=== PATIENT | female | born 1995 | race African-American/Black ===

== ENCOUNTER 2017-05-19 22:30 | Emergency (ER) | payer OTHER ==
--- NOTE | 2017-05-19 23:32 | RAD ---
PA AND LATERAL CHEST: Indication: Midsternal chest pain. Comparison: None. FINDINGS/IMPRESSION: Lungs are clear. Cardiomediastinal silhouette is normal. No acute osseous abnormality is evident. POS: [facility]
== END 2017-05-19 23:21 | disposition left against medical advice (07) ==
LOC: ERS 22:30
DX: Z53.21 Procedure and treatment not carried out due to patient leaving prior to being seen by health care provider (principal)
CPT/HCPCS: 71020; 93005

== ENCOUNTER 2017-05-20 08:34 | Emergency (ER) | payer OTHER ==
[2017-05-20 09:12] LABS: #Eosinphils 0.1 thou/uL (0.0-0.7); #Lymphocytes 1.2 thou/uL (1.20-3.40); %Basophils 0.4 % (0.0-1.0); %Eosinophils 0.6 % (0.0-10.0); %Lymphocytes 10.8 % (28.0-48.0); %Monocytes 8.4 % (0.0-4.0); Hematocrit 34.6 % (36.0-47.0); Mean Platelet Volume 7.6 fL (7.4-10.4); Red Blood Cell (RBC) Count 3.77 mill/uL (4.00-5.20); White Blood Cell (WBC) Count 11.3 thou/uL (4.8-10.8)
[2017-05-20 09:28] LABS: Bilirubin Small (Negative); Blood, Urine Negative (Negative); Glucose, Urine (Dipstick) Negative (Negative); Ketone, Urine > or equal to 80 mg/dL (Negative); Nitrite Negative (Negative); Protein, Urine (Dipstick) Trace mg/dL (Neg-Trace)
[2017-05-20 09:30] LABS: ALT (SGPT) Less than 7 U/L (8-55); AST (SGOT) 12 U/L (5-34); Alkaline Phosphatase 58 U/L (40-150); Anion Gap 9 mmol/L (10-20); BUN (Urea Nitrogen) 8 mg/dL (7.0-18.7); Bilirubin, Total 1.1 mg/dL (0.2-1.2); Calc. Creatinine Clearance 0 mL/min (70-130); Calcium 8.9 mg/dL (7.8-10.44); Carbon Dioxide 27 mmol/L (22-29); Chloride 103 mmol/L (98-107); Estimated GFR-MDRD Greater than 90; Globulin 3.8 g/dL (2.4-3.5); Protein, Total 7.7 g/dL (6.0-8.3)
[2017-05-20] MEDS ORDERED: Acetaminophen 500 MG TAB ONE (10:17)
== END 2017-05-20 10:59 | disposition home or self-care (01) ==
LOC: ERS 08:34
DX: B34.9 Viral infection, unspecified (principal); F41.9 Anxiety disorder, unspecified
CPT/HCPCS: 71020; 80053; 81003; 84703; 85025; 93005; 99284

== ENCOUNTER 2017-12-11 00:49 | Emergency (ER) | payer OTHER | END 2017-12-11 01:25 | disposition home or self-care (01) | LOC: ERS 00:49 | DX: O99.513 Diseases of the respiratory system complicating pregnancy, third trimester (principal); J02.9 Acute pharyngitis, unspecified; O99.343 Other mental disorders complicating pregnancy, third trimester; F41.9 Anxiety disorder, unspecified; Z3A.00 Weeks of gestation of pregnancy not specified | CPT/HCPCS: 99282 ==

== ENCOUNTER 2018-01-25 18:51 | Observation (INO) | payer OTHER ==
[2018-01-25 19:21] LABS: #Eosinphils 0.1 thou/uL (0.0-0.7); #Lymphocytes 1.7 thou/uL (1.20-3.40); #Monocytes 0.8 thou/uL (0.11-0.59); #Neutrophils 7.1 thou/uL (1.40-6.50); %Basophils 0.4 % (0.0-1.0); %Eosinophils 0.9 % (0.0-10.0); %Lymphocytes 17.8 % (21.0-51.0); %Monocytes 8.2 % (0.0-10.0); %Neutrophils 72.7 % (42.0-75.0); Hemoglobin 8.7 g/dL (12.0-16.0); Mean Corpuscular Hemoglobin 23.8 pg (27.0-31.0); Mean Corpuscular Volume 74.4 fL (78.0-98.0); Mean Platelet Volume 9.4 fL (7.4-10.4); Platelet Count 213 thou/uL (130-400); Red Blood Cell (RBC) Count 3.67 mill/uL (4.20-5.40); White Blood Cell (WBC) Count 9.7 thou/uL (4.8-10.8)
[2018-01-25 19:30] LABS: Bilirubin Negative (Negative); Blood, Urine Negative (Negative); Clarity CLEAR (Clear); Glucose, Urine (Dipstick) Negative (Negative); Leukocyte Small (Negative); Nitrite Negative (Negative); Protein, Urine (Dipstick) Negative (Neg-Trace); Specific Gravity, Urine 1.016 (1.002-1.036)
[2018-01-25 19:30] LABS: PTT 26.8 SEC (22.9-36.1); Prothrombin Time 13.1 SEC (12.0-14.7)
[2018-01-25 19:32] LABS: Bacteria/HPF 1+ HPF (None Seen); Hyaline Casts/LPF 0-3 HYALINE CAST LPF (0-3 Hyaline); Pathc Cast-AUWi Flag 0.14 (0-2.49); RBC/HPF 0-3 HPF (0-3)
[2018-01-25 19:34] LABS: Anisocytosis SLIGHT = 6-15 cells (100X) (0-5/hpf); Hypochromia SLIGHT = 6-15 cells (100X) (0-5/hpf); Large Platelets SLIGHT; MDiff Complete? YES; Microcytosis SLIGHT = 6-15 cells (100X) (0-5/hpf); Ovalocytes SLIGHT = 2-5 cells (100X) (0-1/hpf); PLT Morphology Comment Appears Adequate; Polychromasia SLIGHT = 2-3 cells (100X) (0-2/hpf)
[2018-01-25 19:35] LABS: Anion Gap 12 mmol/L (10-20); BUN (Urea Nitrogen) 6 mg/dL (7.0-18.7); Calc. Creatinine Clearance 0 mL/min (70-130); Calcium 8.5 mg/dL (7.8-10.44); Carbon Dioxide 23 mmol/L (22-29); Chloride 104 mmol/L (98-107); Estimated GFR-MDRD Greater than 90; Glucose 88 mg/dL (70-105); Potassium 3.6 mmol/L (3.5-5.1); Sodium 135 mmol/L (136-145)
[2018-01-25 22:00] VITALS: BMI 26.7
[2018-01-25] MEDS: Sodium Chloride 0.9% 1,000 ML IV SCH ×2 (22:15→23:26)
--- NOTE | 2018-01-25 22:23 | PDOC.EVN ---
Event Note - Event Note Event Note: H&P written in chart...AND dictated, Exam by me: cervix /1, no VB, no LOF BPP pending Good FM now felt.
[2018-01-25] MEDS ORDERED: cefTRIAXone\\ROCEPHIN 1 GM in Sodium Chloride 0.9% 100 ML IVPB SCH (22:30)
--- NOTE | 2018-01-25 22:31 | HP ---
DATE OF ADMISSION: 01/25/2018 HISTORY AND PHYSICAL TIME OF EVALUATION: 22:10 (This is after the patient arrived to Labor and Delivery after first being cleared from the ER). REASON FOR EVALUATION: Status post fall from a sitting position from a chair onto the floor/concrete and patient hitting her left hip and buttocks. PHYSICIAN: Patient sees Dr. Jose Stephens. Patient has a full handwritten H&P and this dictation is to supplement that. HISTORY OF PRESENT ILLNESS: In brief, the patient was seen in Labor and Delivery at approximately 22 00 status post ER clearance. She is a G2, P1 with a history of a for -induced hyp ertension that was done approximately at 26 weeks. She has a repeat scheduled with this . She is now at 37 weeks. She states that her fall happened today at approximately 1 830. She denies gush of fluid or vaginal bleeding. In the ER, she was noted to have a hemoglobin of 8.7, but I do not have a baseline to compare to. PAST MEDICAL HISTORY: She has a recent history of just being diagnosed with a UTI, which was found i n the ER, but that was not yet treated. PAST SURGICAL HISTORY: x1 at 26 weeks. ALLERGIES: None. OBSTETRIC HISTORY: Significant for as previously described. PHYSICAL EXAMINATION: VITAL SIGNS: Her blood pressure is 110/60, pulse is in the 60s, and her temperature is 98.9. GENERAL: She is in no acute distress. Uterus is nontender, but it is firm when contractions occur. Cervix is currently pending as patient just arrived here shortly and I will update the record after I do her exam. The patient's heart tones were initially nonreactive, now they are moderate karolina iability with better accelerations. On the tocodynamometer, we are picking up some contractions abou t every 2-3 minutes. LABORATORY DATA: From the ER showed a hemoglobin of 8.7 and again a UTI that was diagnosed by the ER , but not yet treated. ASSESSMENT: This is a patient at 37 weeks, patient of Dr. Jose Stephens who were initially had a clas s II strip upon arrival to labor and delivery, status post fall, but now looks better. PLAN: 1. IV hydration with normal saline, I have ordered normal saline since I will give her 1 gram of Sukhjinder ephin for her recently diagnosed urinary tract infection. 2. She has been typed and crossed in the ER. 3. Biophysical profile for the class II strip. 4. If the nonstress test continues to look nonreactive (currently looks better) and/or there is cont inued suspicion of possible small level abruption, we may proceed with a repeat . For now, we will continue to await more information with a biophysical profile and await cervical examinations .
--- NOTE | 2018-01-25 23:36 | PDOC.EVN ---
Event Note - Event Note Event Note: BPP 01/22 Continue OBS overnight
--- NOTE | 2018-01-26 04:17 | PDOC.EVN ---
Event Note - Event Note Event Note: F/U check: Baby is cat 1 on monitor Uterine irritability now resolved Ok for DC home at 0500 as no evidence abruption or distress clinically
[2018-01-26 05:05] VITALS: BP 90/60; TEMP 98.6
--- NOTE | 2018-01-26 15:15 | ULT ---
PRELIMINARY REPORT/[facility]/EMERGENTY AFTER-HOURS PROCEDURE US Biophysical Profile Without Non-Stress Testing CLINICAL HISTORY: 22 years old, female; Injury or trauma; Fall; ; Prior surgery; Surgery date: 6+ months; Surge ry type: TECHNIQUE: Real-time ultrasound of the maternal pelvis for biophysical profile evaluation with image docum entation. COMPARISON: No relevant prior studies available. FINDINGS: breathing movements: Present. Score 2/2. Gross body movements: Present. Score 2/2. tone: Present. Score 2/2. Qualitative amniotic fluid volume: Within normal limits. Score 2/2. IMPRESSION: Normal biophysical profile ultrasound. Score 8/8. US Uterus, Limited US Doppler Velocimetry Umbilical Artery TECHNIQUE: Real-time ultrasound of the maternal uterus (limited) with image documentation. Real-time US Doppler velocimetry of the umbilical artery integrating B-mode two-dimensional vascular struct ure, Doppler spectral analysis and color flow Doppler imaging. COMPARISON: No relevant prior studies available. FINDINGS: Single living intrauterine gestation in vertex presentation. FHR: 160bpm. Placenta is posterior. No a cute findings. YUE: 9.8cm. Three-vessel cord is noted. Umbilical artery S/D ratio is 2.2. Adequate diastolic flow is present. IMPRESSION: Single viable intrauterine . No acute findings. Thank you for allowing us to participate in the care of your patient. Dictated and Authenticated by: Dylan Man MD 01/26/2018 12:55 AM Central Time ([place] & [place]) FINAL REPORT ULTRASOUND BIOPHYSICAL PROFILE LIMITED OB ULTRASOUND: I agree with the preliminary report given by Dr. Man of [facility]. POS: [facility]
== END 2018-01-26 05:20 | disposition home health service (06) ==
LOC: ERS 18:51 → SDC/OP 21:36 → L&D 01-26 02:25
PROVIDERS: ADMIT Obstetrics & Gynecology; ATTEND Obstetrics & Gynecology
DX: O9A.213 Injury, poisoning and certain other consequences of external causes complicating pregnancy, third trimester (principal); R10.9 Unspecified abdominal pain; O23.43 Unspecified infection of urinary tract in pregnancy, third trimester; Z3A.37 37 weeks gestation of pregnancy; Z79.899 Other long term (current) drug therapy; W07.XXXA Fall from chair, initial encounter
CPT/HCPCS: 76819; 80048; 81003; 81015; 85025; 85384; 85610; 85730; 86850; 86870; 86900; 86901; 86921; 87086; 96361; 96365; 99285; J0696; J7050

== ENCOUNTER 2018-01-27 13:01 | Outpatient (CLI) | payer OTHER ==
--- NOTE | 2018-01-27 15:37 | ULT ---
OBSTETRIC SONOGRAM: HISTORY: evaluation, third trimester gestation. FINDINGS: Multiple transabdominal sonographic views of the gravid uterus shows a single intrauterine gestation in cephalic presentation. cranium predominantly obscures the uterine cervix. No gross intracran ial abnormalities are evident. spine and kidneys are intact as visualized. Three vessel cord sh ows a normal insertion. Heart motion at 130 beats per minute. Amniotic fluid is within normal limits. Grade II placenta is posterior and to the material left. Measurements are as follows: Biparietal diameter 32 weeks, 5 days Head circumference 35 weeks, 5 days Abdominal circumference 35 weeks, 0 days Femur length 36 weeks, 5 days Estimated date of delivery based on today's sonogram is 03/06/18. Hadlock percentile equals 13%. IMPRESSION: Single viable intrauterine gestation with estimated gestational age based on today's sonogram of 34 w eeks, 4 days. Estimated weight 2643 grams (5 lb. 13 oz.). POS: [facility]
== END 2018-01-27 13:02 | disposition home or self-care (01) ==
LOC: SCSULT 13:01
PROVIDERS: ATTEND Family Medicine
DX: Z34.93 Encounter for supervision of normal pregnancy, unspecified, third trimester (principal); Z3A.34 34 weeks gestation of pregnancy
CPT/HCPCS: 76805

== ENCOUNTER 2018-02-01 15:58 | Day surgery (SDC) | payer OTHER ==
[2018-02-01 16:32] VITALS: BMI 28.3
[2018-02-01 16:33] VITALS: BP 101/70; TEMP 98.3
[2018-02-01] MEDS ORDERED: Dextrose 5%-Lactated Ringers 1,000 ML IV SCH ×2 (17:30→17:50)
--- NOTE | 2018-02-01 17:32 | HP ---
DATE OF SERVICE: 02/01/2018 TIME: 1710, which is also the time of evaluation. LOCATION: Labor and Delivery. This is a patient of Dr. Jose Stephens. Gestational age 30 weeks and 0 day. REASON FOR EVALUATION: Nausea, vomiting, and diarrhea of unclear etiology, at 38 weeks and 0 days, p rior x1 (primary low transverse ). HISTORY OF PRESENT ILLNESS: In brief, this is a 22-year-old -Welsh 2, para 1 with a history of a prior at 26 weeks, which was low transverse a couple of years ago for severe preeclampsia. She has not yet been scheduled for her repeat , but is planning on one later this gestation. She states nausea, vomiting, diarrhea, and some decreased movement. She was last seen on 01/25/2018 by me with a complaint of decreased movement after a fall from a chair. At that time, her biophysical profile was 8/8 and she ruled out for abruption. She is here now for possible gastroenteritis type symptoms. REVIEW OF SYSTEMS: Complete review of systems performed and as per HPI. PAST MEDICAL HISTORY: Otherwise, negative. PAST SURGICAL HISTORY: , which was low transverse. ALLERGIES: None. PHYSICAL EXAMINATION: VITAL SIGNS: Blood pressure is 101/70, pulse is 79, respirations are 20, and she is afebrile with a temperature of 97.9. GENERAL: Clinically, she is in no acute distress and does not appear to be actively laboring. monitor shows some decreased variability at minimum to moderate, but there are accelerations that ar e present. The rate is around 120-130. There is no pathological decelerations noted. Under monitor ing, in terms of the tocodynamometer, there is uterine irritability, but no contraction distinct kasandra tej. ASSESSMENT: This is a 38-week and 0 days patient with a prior low transverse section who pr esents with symptoms likely suspicious for gastroenteritis. She has also had some decreased mo vement. PLAN: 1. Biophysical profile. 2. CMP and a CBC. 3. I have ordered D5 LR for hydration. 4. Observation in labor and delivery for now.
[2018-02-01 17:48] LABS: #Eosinphils 0.1 thou/uL (0.0-0.7); #Lymphocytes 0.7 thou/uL (1.20-3.40); #Monocytes 0.4 thou/uL (0.11-0.59); #Neutrophils 7.9 thou/uL (1.40-6.50); %Eosinophils 0.6 % (0.0-10.0); %Lymphocytes 7.5 % (21.0-51.0); %Monocytes 4.4 % (0.0-10.0); %Neutrophils 87.5 % (42.0-75.0); Hemoglobin 8.5 g/dL (12.0-16.0); Mean Corpuscular HGB CONC 32.3 g/dL (32.0-36.0); Mean Corpuscular Hemoglobin 23.7 pg (27.0-31.0); Mean Corpuscular Volume 73.3 fL (78.0-98.0); Mean Platelet Volume 8.9 fL (7.4-10.4); Platelet Count 205 thou/uL (130-400); RBC Distribution Width 15.1 % (11.5-14.5); Red Blood Cell (RBC) Count 3.59 mill/uL (4.20-5.40)
--- NOTE | 2018-02-01 17:51 | PDOC.EVN ---
Event Note - Event Note Event Note: CBC with Hct 26 CMP pending
[2018-02-01 18:09] LABS: ALT (SGPT) 13 U/L (8-55); AST (SGOT) 21 U/L (5-34); Albumin 3.2 g/dL (3.5-5.0); Alkaline Phosphatase 127 U/L (40-150); Anion Gap 14 mmol/L (10-20); BUN (Urea Nitrogen) 6 mg/dL (7.0-18.7); Bilirubin, Total 1.3 mg/dL (0.2-1.2); Calc. Creatinine Clearance 125 mL/min (70-130); Calcium 8.5 mg/dL (7.8-10.44); Carbon Dioxide 21 mmol/L (22-29); Chloride 104 mmol/L (98-107); Estimated GFR-MDRD Greater than 90; Globulin 3.4 g/dL (2.4-3.5); Glucose 84 mg/dL (70-105); Potassium 3.7 mmol/L (3.5-5.1); Protein, Total 6.6 g/dL (6.0-8.3); Sodium 135 mmol/L (136-145)
--- NOTE | 2018-02-01 18:09 | ULT ---
SONOGRAPHIC BIOPHYSICAL PROFILE EXAM: 02/01/18 HISTORY: Decreased movement. FINDINGS: Single viable intrauterine gestation in cephalic presentation. No evidence of placenta previa. Good tone, breathing movement, and gross movements were demonstrated. Amniotic fluid index is 1 3.3. IMPRESSION: Sonographic biophysical profile score is 8/8. POS: [facility]
--- NOTE | 2018-02-01 18:24 | PDOC.EVN ---
Event Note - Event Note Event Note: BPP is 8/8 CMP is normal HX UTI treated... afebrile Feeling better
== END 2018-02-01 18:34 | disposition home or self-care (01) ==
LOC: L&D/OP 15:58
PROVIDERS: ATTEND Family Medicine
DX: O99.613 Diseases of the digestive system complicating pregnancy, third trimester (principal); K52.9 Noninfective gastroenteritis and colitis, unspecified; O36.8130 Decreased fetal movements, third trimester, not applicable or unspecified; Z3A.30 30 weeks gestation of pregnancy
CPT/HCPCS: 59025; 76819; 80053; 85025; 96360; 99283

== ENCOUNTER 2018-02-09 02:50 | Inpatient (IN) | payer OTHER ==
[2018-02-09 03:19] VITALS: BMI 25.7
[2018-02-09] MEDS ORDERED: Butorphanol Tartrate 1 MG/ML VIAL ONE (04:05)
[2018-02-09] MEDS ORDERED: Promethazine HCl 25 MG/ML VIAL IM PRN (04:30)
[2018-02-09] MEDS ORDERED: Butorphanol Tartrate 1 MG/ML VIAL SLOW IVP PRN (04:30)
[2018-02-09] MEDS ORDERED: Lactated Ringer's 1,000 ML IV SCH (04:30)
[2018-02-09] MEDS ORDERED: Ondansetron HCl/PF 4 MG/2 ML Vial IVP PRN (04:30)
[2018-02-09 04:37] LABS: Hemoglobin 8.9 g/dL (12.0-16.0); Mean Corpuscular HGB CONC 32.9 g/dL (32.0-36.0); Mean Corpuscular Hemoglobin 23.9 pg (27.0-31.0); Mean Corpuscular Volume 72.7 fL (78.0-98.0); Mean Platelet Volume 9.4 fL (7.4-10.4); Platelet Count 218 thou/uL (130-400); RBC Distribution Width 15.7 % (11.5-14.5); Red Blood Cell (RBC) Count 3.72 mill/uL (4.20-5.40); White Blood Cell (WBC) Count 10.2 thou/uL (4.8-10.8)
[2018-02-09] MEDS: Lactated Ringer's 1,000 ML IV SCH ×2 (04:39→06:05)
[2018-02-09] MEDS ORDERED: Bupivacaine 0.5% 20 ML, fentaNYL Citrate/PF 400 MCG in Sodium Chloride 0.9% 72 ML EPIDURAL SCH (05:00)
[2018-02-09] MEDS ORDERED: DISCONTINUE ALL PREVIOUS NARCOTICS FS SCH (05:00)
[2018-02-09 05:10] LABS: HBSAg Index 0.22 S/CO (0-0.99); Hep B Surf Ag Non-Reactive S/CO (NonReactive)
[2018-02-09 06:05] LABS: Syphilis Antibody Nonreactive (Nonreactive); Syphilis Antibody Index 0.05 S/CO (<1.00 Non-Reactive)
[2018-02-09] MEDS ORDERED: NS w/ Oxytocin 10 units 500 ML IV SCH (08:30)
[2018-02-09] MEDS ORDERED: Dextrose 5%-Lactated Ringers 1,000 ML IV SCH (08:30)
--- NOTE | 2018-02-09 08:37 | PDOC.LDPN ---
Labor & Delivery Progress Note - Subjective Subjective: comfortable - Objective Vital signs reviewed and normal: yes General: NAD, resting Uterine fundus: non tender Dilation: 5 Effacement: 75% Station: -1 FHT: category 1 [place] contractions every: 7-9 mins AROM: clear fluid IUPC placed: yes Plan: continue plan of care, pitocin for augmentation
[2018-02-09] MEDS ORDERED: NS / Oxytocin 40 units/1000ml 1,000 ML ONE ×2 (14:14→16:20)
[2018-02-09] MEDS ORDERED: Lidocaine 1% (PF) 30 ML VIAL ONE (14:14)
[2018-02-09] MEDS ORDERED: diphenhydrAMINE 25 MG CAP PO PRN (16:22)
[2018-02-09] MEDS ORDERED: Adacel (T-DAP) 0.5 ML VIAL IM ONE (16:22)
[2018-02-09] MEDS ORDERED: NS / Oxytocin 40 units/1000ml 1,000 ML IV SCH (16:22)
[2018-02-09] MEDS ORDERED: Benzocaine/Menthol 20-0.5% 60 ML CAN TOP PRN (16:22)
[2018-02-09] MEDS ORDERED: Misoprostol 200 MCG TAB VAG PRN (16:22)
[2018-02-09] MEDS ORDERED: Bisacodyl 10 MG SUPP PR PRN (16:22)
[2018-02-09] MEDS ORDERED: Methylergonovine 0.2 MG/ML VIAL IM PRN (16:22)
[2018-02-09] MEDS ORDERED: Milk Of Magnesia 30 ML UDCUP PO PRN (16:22)
[2018-02-09] MEDS: Ibuprofen 800 MG TAB PO SCH (16:49)
--- NOTE | 2018-02-09 18:10 | OP ---
DELIVERY NOTE PREOPERATIVE DIAGNOSES: 1. Term . 2. Prior section. POSTOPERATIVE DIAGNOSES: 1. Term . 2. Prior section. PROCEDURE: Vaginal after with bilateral vaginal wall laceration repair. SURGEON: Sridevi Alves DO ATTENDING PHYSICIAN: Jose Stephens MD ANESTHESIA: Epidural. DESCRIPTION OF PROCEDURE: This 22-year-old black female, G2, P1 taken to the delivery room, complete and pushing. Prepped and draped sterilely. Delivered a baby girl with Apgars 9 at 1 and 9 at 5 min utes. Baby did breathe and cry vigorously upon delivery. Delivered the placenta, 3-vessel intact. Repaired a 5 cm left vaginal wall laceration with 3-0 chromic. Repaired a 5 cm right vaginal wall la ceration and a 3 cm vaginal wall laceration with 3-0 chromic on the right side. Estimated blood loss was 427 mL. Mother and baby did very well.
[2018-02-09] MEDS ORDERED: HYDROcodone/Acetaminophen 5/325 mg Tablet PO PRN (18:34)
[2018-02-09] MEDS: Ferrous Sulfate 325 MG TAB PO SCH (18:51)
[2018-02-09] MEDS: Docusate Calcium (SURFAK) 240 MG CAP PO SCH (22:37)
[2018-02-10] MEDS: Ibuprofen 800 MG TAB PO SCH ×3 (06:06→22:19)
[2018-02-10 06:11] LABS: Hemoglobin 7.9 g/dL (12.0-16.0); Mean Corpuscular HGB CONC 31.8 g/dL (32.0-36.0); Mean Corpuscular Hemoglobin 23.6 pg (27.0-31.0); Mean Corpuscular Volume 74.1 fL (78.0-98.0); Platelet Count 178 thou/uL (130-400); RBC Distribution Width 15.6 % (11.5-14.5); Red Blood Cell (RBC) Count 3.35 mill/uL (4.20-5.40); White Blood Cell (WBC) Count 11.2 thou/uL (4.8-10.8)
[2018-02-10] MEDS: Ferrous Sulfate 325 MG TAB PO SCH ×2 (09:26→17:52)
[2018-02-10] MEDS: Docusate Calcium (SURFAK) 240 MG CAP PO SCH ×2 (09:26→22:20)
[2018-02-10] MEDS: Prenatal Vitamin 1 TAB PO SCH (09:26)
[2018-02-10] MEDS ORDERED: Bupivacaine 0.25% HCL 30 ML VIAL ONE (15:19)
[2018-02-10] MEDS ORDERED: ePHEDrine/0.9% NaCl/PF SYRINGE 50 mg/10 ml ONE (15:19)
[2018-02-11] MEDS: Ibuprofen 800 MG TAB PO SCH (05:18)
[2018-02-11] MEDS: Docusate Calcium (SURFAK) 240 MG CAP PO SCH (08:32)
[2018-02-11] MEDS: Prenatal Vitamin 1 TAB PO SCH (08:32)
[2018-02-11] MEDS: Ferrous Sulfate 325 MG TAB PO SCH (08:33)
[2018-02-11 09:30] VITALS: BP 119/78; TEMP 98.9
== END 2018-02-11 12:55 | disposition home or self-care (01) | DRG 775 ==
LOC: L&D/OP 02:50 → L&D 03:58 → 3SW 17:32
PROVIDERS: ADMIT Obstetrics & Gynecology; ATTEND Family Medicine
PROC: 10E0XZZ Delivery of Products of Conception, External Approach (ICD-10-PCS; principal; 2018-02-10)
PROC: 0UQGXZZ Repair Vagina, External Approach (ICD-10-PCS; 2018-02-10)
DX: O34.211 Maternal care for low transverse scar from previous cesarean delivery (principal); Z3A.39 39 weeks gestation of pregnancy; Z37.0 Single live birth; O70.0 First degree perineal laceration during delivery
CPT/HCPCS: 36415; 51702; 85027; 86780; 86850; 86900; 86901; 86922; 87340; 90715; 99285; J0595; J2001; J3010; J3490; J7050; S0020

== ENCOUNTER 2019-07-09 20:10 | Emergency (ER) | payer OTHER, SELFPAY ==
[2019-07-09 20:54] LABS: Bacteria/HPF 4+ HPF (None Seen); Bilirubin Negative (Negative); Blood, Urine Trace (Negative); Clarity Turbid (Clear); Glucose, Urine (Dipstick) Normal (Negative); Leukocyte 250 Leu/uL (Negative); Nitrite Negative (Negative); Pregnancy Test - Urine (BHCG) Negative (Negative); Pregu Control Bar Appear? YES (CONTROL BAR); Protein, Urine (Dipstick) 200 mg/dL (Neg-Trace); RBC/HPF 0-3 HPF (0-3); Renal Epithelial 0-3 HPF (None Seen); Specific Gravity 1.028 (1.002-1.036); Squamous Epithelial 0-3 HPF (0-3); WBC/HPF 21-50 HPF (0-3)
[2019-07-09 20:55] LABS: Pregu Control Background? CLEAR/WHITE (CLR/WHITE)
[2019-07-09] MEDS ORDERED: Azithromycin 250 MG TAB ONE (21:14)
[2019-07-09] MEDS ORDERED: cefTRIAXone\\ROCEPHIN 250 MG VIAL ONE (21:14)
[2019-07-09] MEDS ORDERED: Lidocaine 2% PF 5 ML VIAL ONE (21:14)
== END 2019-07-09 21:35 | disposition home or self-care (01) ==
LOC: ERS 20:10
DX: N39.0 Urinary tract infection, site not specified (principal); F41.9 Anxiety disorder, unspecified
CPT/HCPCS: 81003; 81015; 81025; 96372; 99283; J0696; J2001

== ENCOUNTER 2019-12-24 15:44 | Emergency (ER) | payer SELFPAY ==
[2019-12-24] MEDS ORDERED: Lidocaine 1% (PF) 30 ML VIAL ONE (16:16)
[2019-12-24] MEDS ORDERED: Azithromycin 250 MG TAB ONE (16:16)
[2019-12-24] MEDS ORDERED: metroNIDAZOLE 250 MG TAB ONE (16:16)
[2019-12-24] MEDS ORDERED: cefTRIAXone\\ROCEPHIN 250 MG VIAL ONE (16:16)
[2019-12-24 16:18] LABS: Pregnancy Test - Urine (BHCG) Negative (Negative); Pregu Control Background? CLEAR/WHITE (CLR/WHITE); Pregu Control Bar Appear? YES (CONTROL BAR); Specific Gravity 1.032 (1.002-1.036)
[2019-12-24 16:20] LABS: Bilirubin Negative (Negative); Blood, Urine Negative (Negative); Clarity Turbid (Clear); Glucose, Urine (Dipstick) Normal (Negative); Ketone, Urine Negative (Negative); Leukocyte 500 Leu/uL (Negative); Nitrite Negative (Negative); Protein, Urine (Dipstick) 20 mg/dL (Neg-Trace); RBC/HPF 0-3 HPF (0-3); Specific Gravity, Urine 1.032 (1.002-1.036); Urobilinogen Normal mg/dL (Less than 2); WBC/HPF Greater than 50 HPF (0-3)
[2019-12-24 16:28] LABS: Bacteria/HPF 2+ HPF (None Seen)
[2019-12-27 16:16] LABS: Chlamydia by PCR DETECTED (NotDetected); GC by PCR Not Detected (NotDetected)
== END 2019-12-24 17:00 | disposition home or self-care (01) ==
LOC: ERS 15:44
DX: N30.90 Cystitis, unspecified without hematuria (principal); N89.8 Other specified noninflammatory disorders of vagina; F41.9 Anxiety disorder, unspecified
CPT/HCPCS: 81003; 81015; 81025; 87480; 87491; 87510; 87591; 87660; 96372; 99283; J0696; J2001

== ENCOUNTER 2020-01-11 19:39 | Emergency (ER) | payer BC ==
[2020-01-11 20:07] LABS: #Eosinphils 0.2 thou/uL (0.0-0.7); #Lymphocytes 2.1 thou/uL (1.20-3.40); #Monocytes 0.4 thou/uL (0.11-0.59); #Neutrophils 2.7 thou/uL (1.40-6.50); %Basophils 0.6 % (0.0-1.0); %Eosinophils 4.4 % (0.0-10.0); %Lymphocytes 38.3 % (21.0-51.0); %Monocytes 7.7 % (0.0-10.0); %Neutrophils 49.1 % (42.0-75.0); Hemoglobin 11.2 g/dL (12.0-16.0); Mean Corpuscular HGB CONC 33.2 g/dL (32.0-36.0); Mean Corpuscular Hemoglobin 27.4 pg (27.0-31.0); Mean Corpuscular Volume 82.6 fL (78.0-98.0); Mean Platelet Volume 8.9 fL (7.4-10.4); Platelet Count 307 thou/uL (130-400); RBC Distribution Width 15.3 % (11.5-14.5); White Blood Cell (WBC) Count 5.4 thou/uL (4.8-10.8)
[2020-01-11 20:41] LABS: Bilirubin Negative (Negative); Blood, Urine Trace (Negative); Glucose, Urine (Dipstick) Negative (Negative); Ketone, Urine Negative (Negative); Leukocyte Negative (Negative); Nitrite Negative (Negative); Protein, Urine (Dipstick) Negative (Neg-Trace); Specific Gravity, Urine 1.025 (1.005-1.030)
[2020-01-11 20:42] LABS: Clarity Clear (Clear); Pregnancy Test - Urine (BHCG) Negative (Negative)
[2020-01-11 20:43] LABS: Pregu Control Background? CLEAR/WHITE (CLR/WHITE); Pregu Control Bar Appear? YES (CONTROL BAR); Specific Gravity 1.025 (1.002-1.036)
[2020-01-11 20:49] LABS: RBC/HPF 0-3 HPF (0-3); Squamous Epithelial 0-3 HPF (0-3); WBC/HPF 0-3 HPF (0-3)
[2020-01-11 20:50] LABS: Bacteria/HPF None Seen HPF (None Seen); Mucous/LPF Rare LPF (<2+)
== END 2020-01-11 21:55 | disposition home or self-care (01) ==
LOC: ERS 19:39
DX: N93.9 Abnormal uterine and vaginal bleeding, unspecified (principal); F41.9 Anxiety disorder, unspecified
CPT/HCPCS: 36415; 81003; 81015; 81025; 85025; 99284

== ENCOUNTER 2023-04-22 14:02 | Emergency (ER) | payer BC, SELFPAY ==
[2023-04-22 14:31] LABS: #Eosinphils 0.1 thou/uL (0.0-0.7); #Monocytes 0.9 thou/uL (0.11-0.59); #Neutrophils 11.2 thou/uL (1.40-6.50); %Basophils 0.3 % (0.0-1.0); %Eosinophils 0.5 % (0.0-10.0); %Lymphocytes 8.2 % (21.0-51.0); %Monocytes 6.4 % (0.0-10.0); %Neutrophils 84.1 % (42.0-75.0); Hematocrit 31.8 % (36.0-47.0); Hemoglobin 9.6 g/dL (12.0-16.0); Mean Corpuscular HGB CONC 30.2 g/dL (32.0-36.0); Mean Corpuscular Volume 76.1 fl (78.0-98.0); Mean Platelet Volume 10.3 fL (7.4-10.4); Platelet Count 395 10x3/uL (130-400); RBC Distribution Width 18.2 % (11.5-14.5); Red Blood Cell (RBC) Count 4.18 mill/uL (4.20-5.40); White Blood Cell (WBC) Count 13.3 10x3/uL (4.8-10.8)
[2023-04-22 15:06] LABS: ALT (SGPT) 9 U/L (8-55); AST (SGOT) 17 U/L (5-34); Albumin 4.4 g/dL (3.5-5.0); Alkaline Phosphatase 53 U/L (40-110); Anion Gap 13 mmol/L (10-20); BUN (Urea Nitrogen) 8 mg/dL (7.0-18.7); Bilirubin, Total 0.8 mg/dL (0.2-1.2); Calc. Creatinine Clearance 0 mL/min (70-130); Carbon Dioxide 23 mmol/L (22-29); Chloride 105 mmol/L (98-107); Estimated GFR 111; Globulin 3.6 g/dL (2.4-3.5); Glucose 109 mg/dL (70-105); Potassium 3.5 mmol/L (3.5-5.1); Sodium 137 mmol/L (136-145)
[2023-04-22 15:17] LABS: Bacteria/HPF 2+ HPF (None Seen); Bilirubin Negative (Negative); Blood, Urine 2+ (Negative); CAUTI Indications for Culture Pelvic or flank pain; Clarity Extra Turbid (Clear); Glucose, Urine (Dipstick) Normal (Negative); Ketone, Urine 10 mg/dL (Negative); Leukocyte 500 Leu/uL (Negative); Nitrite 1+ (Negative); Pregnancy Test - Urine (BHCG) Negative (Negative); Pregu Control Background? CLEAR/WHITE (CLR/WHITE); Pregu Control Bar Appear? YES (CONTROL BAR); Protein, Urine (Dipstick) 100 mg/dL (Neg-Trace); Specific Gravity 1.013 (1.002-1.036); Specific Gravity, Urine 1.013 (1.002-1.036); Squamous Epithelial 0-3 HPF (0-3); Urobilinogen Normal mg/dL (Less than 2); WBC/HPF Greater than 50 HPF (0-3)
[2023-04-22 15:18] LABS: Urine Culture Reflex Yes Yes
[2023-04-22] MEDS ORDERED: Acetaminophen 325 MG TAB ONE (15:36)
[2023-04-22] MEDS ORDERED: cefTRIAXone (ROCEPHIN) 500 MG VIAL ONE (15:44)
[2023-04-22] MEDS ORDERED: Lidocaine 1% MPF 2 ML VIAL ONE (15:44)
== END 2023-04-22 16:19 | disposition home or self-care (01) ==
LOC: ERS 14:02
DX: N39.0 Urinary tract infection, site not specified (principal)
CPT/HCPCS: 36415; 74176; 80053; 81001; 81025; 85025; 87077; 87086; 87186; 96372; J0696

== ENCOUNTER 2023-07-31 02:04 | Emergency (ER) | payer OTHER ==
[2023-07-31] MEDS ORDERED: Ibuprofen 200 MG TAB ONE (02:45)
[2023-07-31 02:49] LABS: Bacteria/HPF 3+ HPF (None Seen); Bilirubin Negative (Negative); Blood, Urine Negative (Negative); CAUTI Indications for Culture Pelvic or flank pain; Clarity Clear (Clear); Glucose, Urine (Dipstick) Normal (Negative); Ketone, Urine Negative (Negative); Leukocyte 75 Leu/uL (Negative); Nitrite 2+ (Negative); Protein, Urine (Dipstick) Negative (Neg-Trace); RBC/HPF 0-3 HPF (0-3); Specific Gravity, Urine 1.021 (1.002-1.036); Urobilinogen 3 mg/dL (Less than 2); WBC/HPF 21-50 HPF (0-3)
[2023-07-31 02:51] LABS: Urine Culture Reflex Yes Yes
[2023-07-31] MEDS ORDERED: Cephalexin 250 MG CAP ONE (03:15)
[2023-07-31 17:31] LABS: Chlam.trachomatis by PCR,Urine DETECTED (NotDetected); GC N.gonorrhoeae PCR,UrineVOID Not Detected (NotDetected)
== END 2023-07-31 03:30 | disposition home or self-care (01) ==
LOC: ERS 02:04
DX: N39.0 Urinary tract infection, site not specified (principal)
CPT/HCPCS: 81001; 87077; 87086; 87186; 87491; 87591; 99283

== ENCOUNTER 2024-03-25 11:30 | Emergency (ER) | payer OTHER ==
[2024-03-25 12:47] LABS: Bacteria/HPF 3+ HPF (None Seen); Bilirubin Negative (Negative); Blood, Urine 1+ (Negative); CAUTI Indications for Culture Dysuria,urgency,freq; Clarity Clear (Clear); Glucose, Urine (Dipstick) Normal (Negative); Ketone, Urine Negative (Negative); Leukocyte 250 Leu/uL (Negative); Nitrite Negative (Negative); Protein, Urine (Dipstick) Negative (Neg-Trace); Specific Gravity, Urine 1.008 (1.002-1.036); Urobilinogen Normal mg/dL (Less than 2)
[2024-03-25 12:52] LABS: Urine Culture Reflex No No
[2024-03-25 13:15] LABS: Pregnancy Test - Urine (BHCG) Negative (Negative); Pregu Control Background? CLEAR/WHITE (CLR/WHITE); Pregu Control Bar Appear? YES (CONTROL BAR); Specific Gravity 1.008 (1.002-1.036)
== END 2024-03-25 13:10 | disposition home or self-care (01) ==
LOC: ERS 11:30
DX: N39.0 Urinary tract infection, site not specified (principal)
CPT/HCPCS: 81001; 81025; 87077; 87086; 87186; 99283

== ENCOUNTER 2025-04-13 02:36 | Emergency (ER) | payer OTHER ==
[2025-04-13] MEDS ORDERED: Ondansetron PF 4 MG/2 ML Vial ONE ×2 (03:12→04:06)
[2025-04-13] MEDS ORDERED: Ketorolac Tromethamine 30 MG (1 mL) VIAL ONE ×2 (03:12→05:38)
[2025-04-13] MEDS ORDERED: HYDROmorphone 0.5 MG/0.5 ML SYRINGE ONE ×3 (03:14→09:43)
[2025-04-13 03:37] LABS: #Basophils 0.03 10x3/uL (0.0-0.2); #Eosinophils 0.06 10x3/uL (0.0-0.7); #Monocytes 0.73 10x3/uL (0.11-0.59); #Neutrophils 8.55 10x3/uL (1.40-6.50); %Basophils 0.3 % (0.0-1.0); %Eosinophils 0.6 % (0.0-10.0); %Lymphocytes 9.2 % (21.0-51.0); %Monocytes 7.0 % (0.0-10.0); %Neutrophils 82.5 % (42.0-75.0); Hematocrit 26.8 % (36.0-47.0); Hemoglobin 7.7 g/dL (12.0-16.0); Mean Corpuscular Hemoglobin 19.3 pg (27.0-31.0); Mean Corpuscular Volume 67.3 fL (78.0-98.0); Platelet Count 330 10x3/uL (130-400); Red Blood Cell (RBC) Count 3.98 mill/uL (4.20-5.40); White Blood Cell (WBC) Count 10.36 10x3/uL (4.8-10.8)
[2025-04-13] MEDS ORDERED: Lidocaine/Transparent Dressing 1 EACH KIT ONE (03:45)
[2025-04-13 03:51] LABS: ALT (SGPT) 20 U/L (Less than 34); AST (SGOT) 50 U/L (11-34); Albumin 3.8 g/dL (3.1-4.5); Alkaline Phosphatase 47 U/L (40-110); Anion Gap 13 mmol/L (10-20); BUN (Urea Nitrogen) 14 mg/dL (7.0-18.7); Bilirubin, Total 0.5 mg/dL (0.3-1.2); Calc. Creatinine Clearance 0 mL/min (70-130); Calcium 8.7 mg/dL (7.8-10.44); Carbon Dioxide 20 mmol/L (22-29); Chloride 107 mmol/L (98-107); Globulin 4.2 g/dL (2.4-3.5); Glucose 98 mg/dL (70-105); Potassium 3.1 mmol/L (3.5-5.1); Sodium 137 mmol/L (136-145)
[2025-04-13 03:52] LABS: BHCG - Serum Negative (NEGATIVE); Pregs Control Background? CLEAR/WHITE (CLR/WHITE); Pregs Control Bar Appear? YES (CONTROL BAR)
[2025-04-13] MEDS ORDERED: Potassium Bicarbonate/Cit Ac 20 MEQ TAB ONE (05:49)
[2025-04-13 07:50] LABS: Magnesium 1.7 mg/dL (1.6-2.6)
== END 2025-04-13 12:49 ==
LOC: ERS 02:36
DX: S02.401A Maxillary fracture, unspecified side, initial encounter for closed fracture (principal); Y04.2XXA Assault by strike against or bumped into by another person, initial encounter
CPT/HCPCS: 12011; 70450; 70486; 72125; 80053; 83735; 84703; 85025; 96374; 96375; 96376; J1171; J1885; J2405; J3010